=== PATIENT | male | born 1995 | race Caucasian/White ===

== ENCOUNTER 2017-03-10 18:24 | Emergency (ER) | payer BC ==
[~2017-03-10] VITALS: Ht 193 cm; Wt 97.2 kg
[2017-03-10 18:26] VITALS: BP 149/76
[2017-03-10] MEDS ORDERED: LIDOCAINE 1%, 20ML ONE (19:39)
[2017-03-10] MEDS ORDERED: LIDOCAINE 1%, 20ML SQ ONE (20:00)
[2017-03-10] MEDS ORDERED: BACITRACIN ZINC OINT 500U/GM, 0.9 GM ONE (20:23)
== END 2017-03-10 20:31 | disposition home or self-care (01) ==
LOC: ED 20:00
DX: S61.411A Laceration without foreign body of right hand, initial encounter (principal); W22.8XXA Striking against or struck by other objects, initial encounter; Y93.39 Activity, other involving climbing, rappelling and jumping off; Y99.8 Other external cause status; Y92.89 Other specified places as the place of occurrence of the external cause
CPT/HCPCS: 12002; 99283